=== PATIENT | female | born 1995 | race Caucasian/White ===

== ENCOUNTER → 2019-05-09 11:07 | Outpatient (CLI) | payer OTHER, SELFPAY ==
[2019-05-09 11:53] LABS: Influenza A and B by PCR Rapid Negative (Negative)
== END ==
PROVIDERS: Visit Provider Nurse Practitioner
DX: R68.89 Other general symptoms and signs (principal)
CPT/HCPCS: 87502

== ENCOUNTER → 2019-05-10 10:03 | Outpatient (CLI) | payer OTHER, SELFPAY ==
[2019-05-10 10:34] LABS: Monotest Negative (Negative)
== END ==
PROVIDERS: Visit Provider Nurse Practitioner
DX: R59.0 Localized enlarged lymph nodes (principal)
CPT/HCPCS: 36415; 86318